=== PATIENT | female | born 1960 | race Caucasian/White ===

== ENCOUNTER 2022-05-21 14:28 | Outpatient (CLI) | payer OTHER, SELFPAY ==
--- NOTE | 2022-05-21 14:40 | CRLHL7_ITS ---
For Patients: As a result of the Century Cures Act, medical imaging exams and procedure reports are released immediately into your electronic medical record. You may view this report before your referring provider. If you have questions, please contact your health care provider. BILATERAL MAMMOGRAM WITH COMPUTER-AIDED DETECTION AND TOMOSYNTHESIS TECHNIQUE: CC and MLO views were obtained. These mammographic images have been obtained using full-field digital technique. These mammographic images were interpreted with the benefit of computer-aided detection. Breast Tomosynthesis was used in this interpretation. COMPARISON FILM: [place] 02/19/2017, 02/14/2016, 02/02/2015. FINDINGS: There are scattered areas of fibroglandular density IMPRESSION: There is no radiographic evidence for malignancy. ASSESSMENT: BI-RADS Category 1: Negative RECOMMENDATION: Routine screening mammogram in 1 year. A lay language report of this examination will be provided to the patient. Gaurav Cortez M.D. Diagnostic Radiologist [email or web address] HILARY/Dictated by: Gaurav Cortez MD @ 05/22/2022 12:56:00 PM (Electronically Signed)
== END 2022-05-21 14:29 | disposition home or self-care (01) ==
LOC: MAMMO 14:29
PROVIDERS: PCP Physician Assistant Medical; Visit Provider Physician Assistant Medical
DX: Z12.31 Encounter for screening mammogram for malignant neoplasm of breast (principal); R92.8 Other abnormal and inconclusive findings on diagnostic imaging of breast
CPT/HCPCS: 77063; 77067

== ENCOUNTER 2022-08-16 07:20 | Outpatient (CLI) | payer OTHER, SELFPAY | END 2022-08-16 07:21 | disposition home or self-care (01) | LOC: FRMREF 08-19 14:41 | PROVIDERS: PCP Physician Assistant Medical; Visit Provider Physician Assistant Medical | DX: R30.0 Dysuria (principal); N39.0 Urinary tract infection, site not specified | CPT/HCPCS: 87086; 87186 ==

== ENCOUNTER 2022-12-25 16:01 | Emergency (ER) | payer OTHER, SELFPAY ==
[2022-12-25 16:07] VITALS: BP 157/89; PULSE 86; RESP 18; TEMP 36.7; O2SAT 95; BMI 19.4
--- NOTE | 2022-12-25 16:35 | CRLHL7_ITS ---
For Patients: As a result of the Cures Act, medical imaging exams and procedure reports are released immediately into your electronic medical record. You may view this report before your referring provider. If you have questions, please contact your health care provider. INDICATION: Chest pain. TECHNIQUE: Chest/left rib 3 views. COMPARISON: None. FINDINGS: Cardiovascular and mediastinum: Heart size and vasculature are normal in caliber and appearance. Lungs and pleural spaces: Lungs are clear. No sign of infiltrate or mass. No sign of pleural effusion. No pneumothorax. Bones and soft tissues: No significant findings. No displaced rib fractures. IMPRESSION: No acute or significant findings. Dictated by Jason Fritz MD @ 12/25/2022 5:40:47 PM (Electronically Signed)
--- NOTE | 2022-12-25 16:35 | CRLHL7_ITS ---
For Patients: As a result of the Century Cures Act, medical imaging exams and procedure reports are released immediately into your electronic medical record. You may view this report before your referring provider. If you have questions, please contact your health care provider. INDICATION: Trauma TECHNIQUE: CT head without contrast. COMPARISON: None FINDINGS: CSF spaces: Within normal limits for age. Brain parenchyma: The ventura-white differentiation is normal. No sign of mass, hemorrhage, or midline shift. Skull base and calvarium: The visualized paranasal sinuses and mastoid air cells demonstrate no acute or significant findings. The visualized orbits are grossly unremarkable. No skull fractures. Posterior parietal calcified sebaceous cyst. Left facial hematoma. IMPRESSION: No evidence of acute intracranial trauma. Left facial hematoma Dictated by Gaurav Sharma MD @ 12/25/2022 5:14:06 PM Please note that all CT scans at this facility use dose modulation, iterative reconstruction, and/or weight-based dosing when appropriate to reduce radiation dose to as low as reasonably achievable. Dictated by: Gaurav Sharma MD @ 12/25/2022 17:14:11 (Electronically Signed)
[2022-12-25] MEDS: IBUPROFEN 400 MG TABLET 800 MG PO (16:43)
--- NOTE | 2022-12-25 17:04 | ED.HEATRA ---
HPI - Head Injury General Chief complaint: Head Injury/Pain Stated complaint: Skiing Accident Time Seen by Provider: 12/25/22 16:06 History of Present Illness HPI Narrative: 62-year-old woman presenting to the emergency department with concern of head injury and left-sided rib pain. Was skiing down hill this afternoon with her partner/ who accompanies her here. She had quite a fall. Was helmeted. Was wearing glasses and sustained a laceration to the left brow. Was checked out by the medics at the [facility] and thought not to have any facial fractures. Continues to have left low rib pain. No neck or back pain. There was no loss of conscious. No nausea. No extremity injury. She denies abdominal pain. Related Data Home Medications Medication Instructions Recorded Confirmed bupropion HCl 300 mg 24 hr tablet, 300 mg PO DAILY 08/16/22 12/25/22 extended release ibuprofen 200 mg capsule 200 mg PO Q6H PRN 08/16/22 08/16/22 rosuvastatin 20 mg tablet 20 mg PO DAILY 08/16/22 12/25/22 Allergies Allergy/AdvReac Type Severity Reaction Status Date / Time No Known Drug Allergies Allergy Verified 08/16/22 07:20 Review of Systems Status of ROS: Reports: 6 or more systems reviewed and unremarkable except as noted in History and below PFSH [facility] Social History Smoking Status: Never smoker Do you use any of these nicotine containing products: None Second hand tobacco smoke exposure: No How often do you have a drink containing alcohol: monthly or less How many standard drinks containing alcohol do you have on a typical day: 1 or 2 AUDIT-C Alcohol total score: 1 Non-prescribed substance use: denies use Exam Narrative: Exam Narrative: Pleasant. Easily conversant. Breathing easily. NAD really unless transitioning then winces in little discomfort. Neck is supple and nontender. She does have a brow laceration at the left nearly 2 inches. Looks to be closed very nicely with a combination of quarter-inch Steri-Strips. Is not bleeding now. Extraocular movements are full and appears to be not painful. There is moderate swelling and bruising around the left periorbital rim for/zygoma. No crepitus or unusual tenderness is palpable over the face. Pupils are equal and brisk. Lungs are clear with equal expansion excursion. She is tender to palpation without outward evidence of injury underneath the left breast on the ribs in the lateral 3rd of the clavicular line. Abdomen actually appears to be nontender. On oppositional compression of her chest it elicits pain in this area as mentioned. There is no supraclavicular crepitus. Extremities are well perfused. Const: Vital Signs, click to edit/add: Vital Signs - 24 hr 12/25/22 16:07 Temperature 98.0 F Pulse Rate [Pulse Oximeter] 86 Respiratory Rate 18 Blood Pressure [Ri ght Upper Arm] 157/89 H Pulse Oximetry 95 Documenting provider has reviewed patient's vital signs: yes Course Vital Signs Vital signs: Initial Vital Signs Temperature 98.0 F 12/25/22 16:07 Temperature Source Temporal Artery Scan 12/25/22 16:07 Pulse Rate 86 12/25/22 16:07 Respiratory Rate 18 12/25/22 16:07 Blood Pressure 157/89 H 12/25/22 16:07 Blood Pressure Mean 111 12/25/22 16:07 Blood Pressure Position Sitting 12/25/22 16:07 Pulse Oximetry 95 12/25/22 16:07 Vital Signs Temperature 98.0 F 12/25/22 16:07 Pulse Rate 86 12/25/22 16:07 Respiratory Rate 18 12/25/22 16:07 Blood Pressure 157/89 H 12/25/22 16:07 Pulse Oximetry 95 12/25/22 16:07 Temperature 98.0 F 12/25/22 16:07 Pulse Rate 86 12/25/22 16:07 Respiratory Rate 18 12/25/22 16:07 Blood Pressure 157/89 H 12/25/22 16:07 Pulse Oximetry 95 12/25/22 16:07 MDM - Head Injury MDM Narrative Medical decision making narrative: While helmeted, I think it is reasonable to do a CT scan of the head. I doubt that she has facial bone fracture. Also will image left low chest looking for rib fracture. Ibuprofen and ice pack. Head CT by my read did show swelling consistent with hematoma in the left periorbital/facial area. No intracranial bleeding apparent. X-ray of the chest with rib views I could not appreciate a fracture. No pneumothorax apparent. We did discuss potential rib binder but does not appear to need that at this time. Discharge Plan Discharge Clinical Impression: Traumatic injury of rib, Laceration of brow without complication, Closed head injury, Facial hematoma Patient Disposition: Home w/ Parent or Adult Condition: Improved Additional Instructions: I would continue to ice the areas that hurt 2-3 times daily over the next few days. Might do those neck pull-down stretches little bit deeper repeating 3 times in 3 forward planes as demonstrated also a few times daily. See handout also for upper back stretches. Return for marked increase in headache, visual changes especially double vision, unusual somnolence, increasing and persistent difficulty breathing. Can take up to 800 mg of ibuprofen per dose or up to 1000 mg of acetaminophen. Alternative to the ibuprofen might be up to 500 mg naproxen 2 times daily. You do not seem to be concussed but signs or symptoms of a concussion might be nausea or headache upon exertion which can also be an indication to back off that level of activity and reassess in a week.? Concussion can also be represented by smoldering nausea or smoldering headache, difficulty with concentration, mood lability general somnolence, sense of persistent fog or dizziness/lightheadedness.? If these symptoms are becoming apparent and continuing beyond 7-10 days, be re-evaluated for further recommendations. For wound care-- can trim steri-strip ends as they begin to peel away. don't peel them off. try to encourage steri-strips to remain on for 6 days though I think that if they manage to stay in place 3 days, all should hold together. try not to soak while steri-strips on. antibiotic ointment probably not necessary and will encourage steri-strips to fall off. for further scar reduction/wound healing if desired -- after the scab falls off, can apply daily vitamin e oil, emu oil or something like maderma or silicone-containing ointments or bandaids daily. especially avoid sun exposure for the first 9 - 12 months. Prescriptions: No Action rosuvastatin 20 mg tablet 20 mg PO DAILY Label Comments: TAKE 1 TABLET BY MOUTH DAILY. bupropion HCl 300 mg tablet extended release 24 hr 300 mg PO DAILY ibuprofen 200 mg capsule 200 mg PO Q6H PRN Follow Up/Referrals: Riccardo Menard PA-C [Primary Care Provider] - Stand Alone Forms: [employer] Info Instructions
== END 2022-12-25 18:03 | disposition home or self-care (01) ==
PROVIDERS: Emergency Provider Family Medicine; PCP Physician Assistant Medical
DX: S09.90XA Unspecified injury of head, initial encounter (principal); S29.8XXA Other specified injuries of thorax, initial encounter; S00.83XA Contusion of other part of head, initial encounter; S01.112A Laceration without foreign body of left eyelid and periocular area, initial encounter; W17.81XA Fall down embankment (hill), initial encounter; Y93.23 Activity, snow (alpine) (downhill) skiing, snowboarding, sledding, tobogganing and snow tubing
CPT/HCPCS: 70450; 71101; 99284; A9270

== ENCOUNTER 2023-03-05 14:16 | Outpatient (CLI) | payer OTHER, SELFPAY | END 2023-03-05 14:17 | disposition home or self-care (01) | PROVIDERS: PCP Physician Assistant Medical; Visit Provider Physician Assistant Medical | DX: E78.5 Hyperlipidemia, unspecified (principal); F32.A Depression, unspecified | CPT/HCPCS: 80053; 80061; 84443 ==